=== PATIENT | male | born 1985 | race Caucasian/White ===

== ENCOUNTER → 2019-12-26 | Outpatient (CLI) | payer OTHER | LOC: HYPER 12:35 | PROVIDERS: ATTEND Emergency Medicine | DX: I83.028 Varicose veins of left lower extremity with ulcer other part of lower leg (principal); L97.822 Non-pressure chronic ulcer of other part of left lower leg with fat layer exposed; I83.811 Varicose veins of right lower extremity with pain; R60.0 Localized edema; E66.9 Obesity, unspecified; M79.605 Pain in left leg; M79.604 Pain in right leg ==

== ENCOUNTER → 2020-01-02 | Outpatient (CLI) | payer OTHER | LOC: HYPER 09:21 | PROVIDERS: ATTEND Emergency Medicine | DX: I83.028 Varicose veins of left lower extremity with ulcer other part of lower leg (principal); L97.822 Non-pressure chronic ulcer of other part of left lower leg with fat layer exposed; I83.811 Varicose veins of right lower extremity with pain; R60.0 Localized edema; E66.01 Morbid (severe) obesity due to excess calories; M79.605 Pain in left leg; Z68.41 Body mass index [BMI] 40.0-44.9, adult ==

== ENCOUNTER → 2020-01-16 | Outpatient (CLI) | payer OTHER | LOC: HYPER 08:49 | PROVIDERS: ATTEND Emergency Medicine | DX: I83.028 Varicose veins of left lower extremity with ulcer other part of lower leg (principal); L97.822 Non-pressure chronic ulcer of other part of left lower leg with fat layer exposed; I83.811 Varicose veins of right lower extremity with pain; R60.0 Localized edema; E66.01 Morbid (severe) obesity due to excess calories; M79.605 Pain in left leg; Z68.41 Body mass index [BMI] 40.0-44.9, adult ==

== ENCOUNTER → 2020-01-23 | Outpatient (CLI) | payer OTHER | LOC: HYPER 08:22 | PROVIDERS: ATTEND Emergency Medicine | DX: I83.028 Varicose veins of left lower extremity with ulcer other part of lower leg (principal); L97.822 Non-pressure chronic ulcer of other part of left lower leg with fat layer exposed; I83.811 Varicose veins of right lower extremity with pain; R60.0 Localized edema; E66.01 Morbid (severe) obesity due to excess calories; M79.605 Pain in left leg; Z68.41 Body mass index [BMI] 40.0-44.9, adult ==